=== PATIENT | female | born 1965 | race American Indian/Alaskan Native ===

== ENCOUNTER 2016-06-15 13:51 | Outpatient (CLI) | payer OTHER ==
--- NOTE | 2016-06-15 15:39 | Mammography Report ---
BILATERAL DIGITAL SCREENING MAMMOGRAM with CAD: 06/15/16 13:51:00 CLINICAL: Routine screening. COMPARISON:04/30/15 FINDINGS: The breasts are predominantly fatty with a few bilateral scattered fibroglandular densities. Bilateral asymmetries are on unchanged compared to the prior exam. No mass, architectural distortion or suspicious calcifications. IMPRESSION: No mammographic evidence of malignancy. BI-RADS CATEGORY: 2 -- Benign RECOMMENDATION: Routine mammographic screening in one year. COMMENT: Patient follow-up letters are generated by our [employer] application.
== END 2016-06-15 13:52 | disposition home or self-care (01) ==
LOC: SPVWC 13:51
PROVIDERS: ATTEND Family Medicine
DX: Z12.31 Encounter for screening mammogram for malignant neoplasm of breast (principal)
CPT/HCPCS: 77067; G0202

== ENCOUNTER 2017-01-30 14:12 | Outpatient (CLI) | payer OTHER ==
--- NOTE | 2017-01-30 15:17 | XRay Report ---
XRAY RIGHT ANKLE THREE VIEWS: 01/30/17 14:12:00 CLINICAL: Right ankle pain. FINDINGS: The ankle mortise is intact.No fracture or dislocation. Small calcaneal plantar enthesophytes. Moderate medial and lateral soft tissue swelling. No foreign body or soft tissue air. IMPRESSION: Calcaneal enthesopathy and nonspecific soft tissue edema.
--- NOTE | 2017-01-30 15:18 | XRay Report ---
XRAY RIGHT FOOT THREE VIEWS: 01/30/17 14:12:00 CLINICAL: Pain FINDINGS: No fracture or dislocation. No bone lesion. Small calcaneal plantar enthesophytes. Mild soft tissue swelling of the forefoot. No soft tissue air or foreign body. IMPRESSION: Nonspecific soft tissue swelling. Calcaneal enthesopathy.
== END 2017-01-30 14:13 | disposition home or self-care (01) ==
LOC: SPVIMAG 14:12
PROVIDERS: ATTEND Family Medicine
DX: M77.31 Calcaneal spur, right foot (principal); M25.471 Effusion, right ankle; I25.10 Atherosclerotic heart disease of native coronary artery without angina pectoris; I10 Essential (primary) hypertension; E78.00 Pure hypercholesterolemia, unspecified; Z87.891 Personal history of nicotine dependence

== ENCOUNTER 2017-04-06 13:40 | Outpatient (CLI) | payer OTHER ==
--- NOTE | 2017-04-06 16:00 | Ultrasound Report ---
THYROID ULTRASOUND:04/06/17 13:40:00 CLINICAL: Goiter. FINDINGS: High-resolution ultrasound demonstrated an enlarged multinodular thyroid. The right lobe measures 5.4 x 2.5 x 2.2cm. The left lobe measures 5.2 x 2.8 x 2.2. The isthmus measures 5.4 mm AP thickness. A solid heterogeneous mildly hypoechoic nodule in the lower pole of the right lobe measures 1.4 x 1.4 x 1.3 cm and is the only measurable nodule in the right lobe. A solid round hypoechoic left lower pole nodule measures 7 x 6 x 6 mm. A heterogeneous solid relatively isoechoic nodule of the left lower pole also contains numerous tiny cysts and measures 2.3 x 2.2 x 2.0 cm. IMPRESSION: Enlarged multinodular thyroid. Recommend six month followup ultrasound to reevaluate the size of nodules.
== END 2017-04-06 13:41 | disposition home or self-care (01) ==
LOC: SPVWC 13:40
PROVIDERS: ATTEND Family Medicine
DX: E04.2 Nontoxic multinodular goiter (principal); E04.9 Nontoxic goiter, unspecified
CPT/HCPCS: 76536

== ENCOUNTER 2018-04-11 11:15 | Outpatient (CLI) | payer OTHER ==
--- NOTE | 2018-04-12 08:26 | Mammography Report ---
BILATERAL DIGITAL SCREENING MAMMOGRAM with CAD: 04/11/18 11:15:00 CLINICAL: Routine screening. COMPARISON:06/15/16 and 04/20/15 FINDINGS: There are scattered areas of fibroglandular density. No mass, architectural distortion or suspicious calcifications. IMPRESSION: No mammographic evidence of malignancy. BI-RADS CATEGORY: 2 -- Benign RECOMMENDATION: Routine mammographic screening in one year. COMMENT: Patient follow-up letters are generated by our [employer] application.
== END 2018-04-11 11:16 | disposition home or self-care (01) ==
LOC: SPVWC 11:15
PROVIDERS: ATTEND Family Medicine
DX: Z12.31 Encounter for screening mammogram for malignant neoplasm of breast (principal)
CPT/HCPCS: 77067

== ENCOUNTER 2019-05-02 09:53 | Outpatient (CLI) | payer OTHER ==
--- NOTE | 2019-05-02 11:20 | Mammography Report ---
DIGITAL SCREENING MAMMOGRAM WITH CAD, 05/02/2019 INDICATION: Routine screening mammography. TECHNIQUE: Digital bilateral 2D mammography was obtained in the craniocaudal and mediolateral obliq ue projections. This examination was interpreted with the benefit of Computer-Aided Detection analysi s. COMPARISON: 04/11/2018 FINDINGS: Breast Density: The breasts are heterogeneously dense, which may obscure small masses. A group of left inner calcifications requires additional imaging. No mass or architectural distortion of the left breast. There is no evidence of dominant mass, suspicious calcifications or architectura l distortion in the right breast. IMPRESSION: Left calcifications requiring additional imaging. Recommend recall for left lateral media l and CC spot magnification views. Follow up recommendation: Special View: Mag Category 0: Incomplete. Needs additional imaging evaluation and/or prior mammograms for comparison. A "normal" or negative report should not discourage follow up or biopsy of a clinically significant f inding. A written summary of these findings will be mailed to the patient. The patient will be entered into a mammography reporting system which will generate a reminder letter for the patient's next appointmen t at the appropriate interval. The [employer] recommends yearly mammograms starting at age 40 and continuing as l barry as a woman is in good health. Breast MRI is recommended for women with an approximate 20-25% or greater lifetime risk of breast cancer, including women with a strong family history of breast or ova ed cancer or who have been treated for Hodgkin's disease. Signer Name: Gage Cruz MD Signed: 05/02/2019 11:15 AM Workstation Name: [id number]
== END 2019-05-02 09:54 | disposition home or self-care (01) ==
LOC: SPVWC 09:53
PROVIDERS: ATTEND Family Medicine
DX: Z12.31 Encounter for screening mammogram for malignant neoplasm of breast (principal)
CPT/HCPCS: 77067

== ENCOUNTER 2019-07-08 14:04 | Outpatient (CLI) | payer OTHER ==
--- NOTE | 2019-07-08 17:33 | Mammography Report ---
DIGITAL DIAGNOSTIC MAMMOGRAM WITH CAD, 07/08/2019 INDICATION: ABNORMAL MAMMOGRAM TECHNIQUE: Digital left mammographic imaging was performed. Magnification views were obtained. This examination was interpreted with the benefit of Computer-aided Detection analysis. COMPARISON: Recent screening mammogram, 05/02/2019 and prior mammogram 04/11/2018 FINDINGS: Breast Density: There are scattered areas of fibroglandular density. There is a linear area of heterogeneous calcifications in the left breast at approximately 8:00 sylvie uring 1.6 cm in length. Calcifications are proximally 7.5 cm from the nipple. IMPRESSION: Recommend stereotactic biopsy for calcifications in the left breast at 8:00. Differential diagnosis includes fat necrosis versus DCIS. Follow up recommendation: Left breast stereotactic biopsy. BI-RADS Category 4: Suspicious for Malignancy. A "normal" or negative report should not discourage follow up or biopsy of a clinically significant f inding. A written summary of these findings will be mailed to the patient. The patient will be entered into a mammography reporting system which will generate a reminder letter for the patient's next appointmen t at the appropriate interval. According to the [employer], yearly mammograms are recommended starting at age 40 and continuing as long as a woman is in good health. Breast MRI is recommended for women with an shelby roximately 20-25% or greater lifetime risk of breast cancer, including women with a strong family his tory of breast or ovarian cancer and women who have been treated for Hodgkin's disease. Signer Name: Faby Lamb MD Signed: 07/08/2019 5:28 PM Workstation Name: [email or web address]
== END 2019-07-08 14:05 | disposition home or self-care (01) ==
LOC: SPVWC 14:04
PROVIDERS: ATTEND Family Medicine
DX: R92.8 Other abnormal and inconclusive findings on diagnostic imaging of breast (principal)

== ENCOUNTER 2021-01-28 14:05 | Outpatient (CLI) | payer OTHER ==
--- NOTE | 2021-01-31 09:08 | Mammography Report ---
DEXA BONE DENSITY SCAN INDICATION / CLINICAL INFORMATION: ASYMPTOMATIC MENOPAUSAL STATE. 55 years Female COMPARISON: None available. LUMBAR SPINE, L1-L4: - Bone mineral density (BMD) = 1.231 g/cm2. - T-score = 0.7 - Z-score = 2.0 Change (%) since most recent prior (if available): None available. LEFT HIP, NECK : - Bone mineral density (BMD) = 1.043 g/cm2. - T-score = 0.6 - Z-score = 1.5 Change (%) since most recent prior (if available): None available. IMPRESSION: 1. WHO Classification: Normal bone density. Fracture Risk: Not Increased. 2. 10-Year Fracture Risk (FRAX) = Major Osteoporotic Not reported.% / Hip: Not reported.% FRAX generally not reported for patients with normal or osteoporotic BMD, in [id number] jud ents younger than age 50, or in patients undergoing pharmacotherapy BMD Reporting Guidelines (ISCD, 2015) BMD Reporting in Postmenopausal Women and in Men Age 50 and Older - T-scores are preferred. - The WHO densitometric classification is applicable. BMD Reporting in Females Prior to Menopause and in Males Younger Than Age 50 - Z-scores, not T-scores, are preferred. This is particularly important in children. - A Z-score of -2.0 or lower is defined as below the expected range for age, and a Z-score above -2.0 is within the expected range for age. - Osteoporosis cannot be diagnosed in men under age 50 on the basis of BMD alone. - The WHO diagnostic criteria may be applied to women in the menopausal transition. http://www.iscd.org/official-positions/7285-febu-qijzrklw-positions-adult/ Signer Name: Bayron Flanagan DO Signed: 01/31/2021 9:03 AM Workstation Name: [id number]
--- NOTE | 2021-01-31 13:30 | Mammography Report ---
DIGITAL SCREENING MAMMOGRAM WITH CAD, 01/28/2021 CLINICAL INFORMATION / INDICATION: Routine screening mammography. SCREENING MAMMO TECHNIQUE: Digital bilateral 2D mammography was obtained in the craniocaudal and mediolateral obliqu e projections. This examination was interpreted with the benefit of Computer-Aided Detection analysis . COMPARISON: 05/10/19, 04/11/18 FINDINGS: Breast Density: There are scattered areas of fibroglandular density. No dominant mass, suspicious calcifications, or architectural distortion in either breast. Left breast biopsy clips are now present. Right breast calcified oral cysts are unchanged. IMPRESSION: No mammographic evidence of malignancy. Follow up recommendation: Routine yearly BI-RADS Category 2: Benign. A "normal" or negative report should not discourage follow up or biopsy of a clinically significant f inding. A written summary of these findings will be mailed to the patient. The patient will be entered into a mammography reporting system which will generate a reminder letter for the patient's next appointmen t at the appropriate interval. The [employer] recommends yearly mammograms starting at age 40 and continuing as l barry as a woman is in good health. Breast MRI is recommended for women with an approximate 20-25% or greater lifetime risk of breast cancer, including women with a strong family history of breast or ova ed cancer or who have been treated for Hodgkin's disease. Signer Name: Craig Gallegos MD Signed: 01/31/2021 1:26 PM Workstation Name: [id number]
== END 2021-01-28 14:06 | disposition home or self-care (01) ==
LOC: SPVWC 14:05
PROVIDERS: ATTEND Family Medicine
DX: Z12.31 Encounter for screening mammogram for malignant neoplasm of breast (principal); Z78.0 Asymptomatic menopausal state
CPT/HCPCS: 77067; 77080